=== PATIENT | female | born 1945 | race Caucasian/White ===

== ENCOUNTER 2019-02-04 16:10 | Inpatient (IN) | payer MEDICAID, MEDICARE ==
--- NOTE | 2019-02-04 16:42 | ED Physician Chart ---
ED Chief Complaint/HPI - Patient Information Date Seen:: 02/04/19 Time Seen:: 16:36 Chief Complaint:: hallucinations History of Present Illness:: this is a 73 yo female sent from the [facility] for evaluation and treatment because she has been yelling out for a week, out of control. she is chronically ill bilateral bka, diabetic and psychosis. Allergies:: Allergies Allergy/AdvReac Type Severity Reaction Status Date / Time No Known Allergies Allergy Verified 02/04/19 16:28 Vitals:: Vital Signs - 8 hr 02/04/19 16:28 Temp 97.4 F HR 55 RR 16 BP 171/68 O2 Sat % 99 Historian:: Medical Records Review:: Nurse's Note Reviewed ED Review of Systems - Review of Systems General/Constitutional: No fever, No chills, No weight loss, No weakness, No diaphoresis, No edema, No loss of appetite, Other (this patient is unable to give a review of system) Skin: No skin lesions, No rash, No bruising Head: No headache, No light-headedness Eyes: No loss of vision, No pain, No diplopia ENT: No earache, No nasal drainage, No sore throat, No tinnitus Neck: No neck pain, No swelling, No thyromegaly, No stiffness, No mass noted Cardio Vascular: No chest pain, No palpitations, No PND, No orthopnea, No edema Pulmonary: No SOB, No cough, No sputum, No wheezing GI: No nausea, No vomiting, No diarrhea, No pain, No melena, No hematochezia, No constipation, No hematemesis G/U: No dysuria, No frequency, No hematuria Musculoskeletal: No bone or joint pain, No back pain, No muscle pain Endocrine: No polyuria, No polydipsia Psychiatric: No prior psych history, No depression, No anxiety, No suicidal ideation Hematopoietic: No bruising, No lymphadenopathy Allergic/Immuno: No urticaria, No angioedema Neurological: No syncope, No focal symptoms, No weakness, No paresthesia, No headache, No seizure, No dizziness, No confusion, No vertigo ED Past Medical History - Past Medical History Obtainable: Yes Past Medical History: HTN, DM, Dementia Family History: None Social History: Non Smoker, No Alcohol, No Drug Use Surgical History: other (bilateral bka) Psychiatricy History: Schizophrenia, Dementia Family Medical History - Family Member Mother History Unknown: Yes ED Physical Exam - Physical Examination General/Constitutional: Awake, Well-developed, well-nourished, Alert, No distress, GCS 15, Non-toxic appearing, Ambulatory Other Gen/Cons comments:: confused intermittently and uncooperative Head: Atraumatic Eyes: Lids, conjuctiva normal, PERRL, EOMI Skin: Nl inspection, No rash, No skin lesions, No ecchymosis, Well hydrated, No lymphadenopathy ENMT: External ears, nose nl, Nasal exam nl, Lips, teeth, gums nl Neck: Nontender, Full ROM w/o pain, No JVD, No nuchal rigidity, No bruit, No mass, No stridor Respiratory: Nl effort/Exclusion, Clear to Auscultation, No Wheeze/Rhonchi/Rales Cardio Vascular: RRR, No murmur, gallop, rubs, NL S1 S2 GI: No tenderness/rebounding/guarding, No organomegaly, No hernia, Normal BS's, Nondistended, No mass/bruits, No McBurney tenderness : No CVA tenderness Extremities: No tenderness or effusion, Full ROM, normal strength in all extremities, No edema, Normal digits & nails Other Extremities comments:: bilateral bka Neuro/Psych: Alert/oriented, DTR's symmetric, Normal sensory exam, Normal motor strength, Judgement/insight normal, Mood normal, Normal gait, No focal deficits Misc: Normal back, No paraspinal tenderness ED Labs/Radiology/EKG Results - EKG Interpretations EKG Time:: 16:49 Rate & Rhythm: rate =57 sinus Gardner: right axis ED Assessment - Assessment General Assessment: psychosis ED Septic Shock - . Is Septic Shock (SBP<90, OR Lactate>4 mmol\L) present?: No - <6hrs of presentation: Vital Signs: Vital Signs - 8 hr / 16:28 Temp 97.4 F HR 55 RR 16 BP 171/68 O2 Sat % 99 ED Reassessment (Disposition) - Reassessment Reassessment Condition:: Unchanged - Diagnosis Diagnosis:: psychosis - Patient Disposition Discharge/Transfer:: Acute Care w/in this hosp Admitting Psych Physician:: Jorge Godinez
[2019-02-04 16:46] LABS: % BASOPHILS 1.2 % (0.0-2.0); % EOSINOPHILS 2.5 % (0.0-5.0); % LYMPHOCYTES 29.4 % (20.0-50.0); % MONOCYTES 8.4 % (2.0-10.0); % NEUTROPHILS 58.5 % (40.0-80.0); BASOPHILE ABSOLUTE 0.1 Th/cumm (0-0.2); EOSINOPHILE ABSOLUTE 0.2 Th/cmm (0.1-0.4); HEMATOCRIT 35.7 % (41.0-60); LYMPHOCYTE ABSOLUTE 2.6 Th/cmm (1.5-3.0); MEAN CORPUSCULAR HGB CONC 33.7 pg (28.0-36.0); MEAN PLATELET VOLUME 6.5 fl; MONOCYTE ABSOLUTE 0.7 Th/cmm (0.3-1.0); NEUTROPHILE ABSOLUTE 5.2 Th/cmm (1.8-8.0); PLATELET COUNT 469 Th/cmm (150-400); RED BLOOD COUNT 3.88 Mil/cmm (3.80-5.20); RED CELL DISTRIBUTION WIDTH 12.5 % (11.5-20.0); WHITE BLOOD COUNT 8.8 Th/cmm (4.8-10.8)
[2019-02-04 16:56] LABS: INR 0.93 (0.5-1.4); PROTHROMBIN TIME (TEST) 9.7 SECONDS (9.5-11.5)
[2019-02-04 17:00] LABS: ALB/GLOB RATIO 0.9 (1.0-1.8); ALBUMIN 3.4 gm/dL (3.7-5.3); ALKALINE PHOSPHATASE 101 U/L (34-104); ANION GAP 14.5 (7.0-16.0); BILIRUBIN,TOTAL 0.2 mg/dL (0.3-1.0); BUN - UREA NITROGEN 37 mg/dL (7-25); CALCIUM SERUM 9.5 mg/dL (8.6-10.3); CARBON DIOXIDE 18.9 mEq/L (21.0-31.0); CHLORIDE 103 mEq/L (98-107); CREATININE - SERUM 2.1 mg/dL (0.6-1.2); GLUCOSE 238 mg/dL (70-105); POTASSIUM SERUM 4.4 mEq/L (3.5-5.1); SGOT 12 U/L (13-39); SGPT/ALT 4 U/L (7-52); SODIUM SERUM 132 mEq/L (136-145); TOTAL PROTEIN,SERUM 7.2 gm/dL (6.0-8.3)
[2019-02-04 17:00] LABS: CHOLESTEROL 212 mg/dL (<200); HDL -HIGH DENSITY LIPOPROTEIN 43 mg/dL (23-92); TRIGLYCERIDES 350 mg/dL (<150)
[2019-02-04 17:23] LABS: URINE SOURCE CLEAN C
[2019-02-04 17:25] LABS: URINE BILIRUBIN NEGATIVE (NEGATIVE); URINE BLOOD SMALL (NEGATIVE); URINE GLUCOSE (UA) 250 mg/dL (NEGATIVE); URINE KETONE NEGATIVE (NEGATIVE); URINE LEUKOCYTE ESTERASE LARGE (NEGATIVE); URINE MICROSCOPIC INDICATED? YES; URINE NITRATE NEGATIVE (NEGATIVE); URINE PH 6.5 (4.6 - 8.0); URINE PROTEIN >=300 mg/dL (NEGATIVE); URINE UROBILINOGEN 0.2 E.U./dL (0.2 - 1.0)
[2019-02-04 17:27] LABS: URINE CLARITY HAZY (CLEAR); URINE COLOR YELLOW
[2019-02-04 17:32] LABS: URINE BACTERIA 3+ /hpf (NONE SEEN); URINE EPITHELIAL CELLS FEW /lpf (FEW)
[2019-02-04 17:57] VITALS: BP 171/68
[2019-02-04] MEDS ORDERED: Dextrose 50% 50 mL Abboject IVP PRN (19:25)
[2019-02-04] MEDS ORDERED: GLUCAGON HCl 1 MG KIT IM PRN (19:25)
[2019-02-04] MEDS: INSULIN LISPRO SLIDING SCALE 100 UNITS/ML UNIT SUBQ SCH (21:14)
[2019-02-05] MEDS: INSULIN LISPRO SLIDING SCALE 100 UNITS/ML UNIT SUBQ SCH ×4 (07:09→21:57)
[2019-02-05] MEDS ORDERED: Non-Formulary Item 1 EA (Acetaminophen [Pain Reliever] 650 MG) PO PRN (08:42)
[2019-02-05] MEDS ORDERED: Non-Formulary Item 1 EA (Clonidine Hcl [Clonidine Hcl Er] 0.1 MG) PO SCH (08:45)
[2019-02-05] MEDS ORDERED: FAMOTIDINE 20 MG PO SCH (09:00)
[2019-02-05] MEDS ORDERED: Non-Formulary Item 1 EA (Insulin Detemir 10 UNITS) SUBQ SCH (09:00)
[2019-02-05] MEDS: Vitamin D3 2,000 IU SGL PO SCH ×3 (09:53→21:19)
--- NOTE | 2019-02-05 09:53 | Diagnostic Imaging Report ---
CHEST X-RAY: AP view INDICATION: pain COMPARISON: None FINDINGS: There is elevation of right hemidiaphragm. Chronic lung changes are noted. There is no focal consolidation or pleural effusions. Mild cardiomegaly is noted. Degenerative changes of spine are noted. IMPRESSION: Chronic interstitial lung changes. No focal consolidation identified Mild cardiomegaly.
[2019-02-05] MEDS: Multivitamin w/ Minerals Tab PO SCH (09:55)
[2019-02-05] MEDS: Ferrous Sulfate 325 MG TAB PO SCH (09:56)
--- NOTE | 2019-02-05 09:59 | Diagnostic Imaging Report ---
Head CT without intravenous contrast Indication: pain Comparison: None Technique: Axial images were obtained from the vertex to the skull base without IV contrast. Coronal reconstructions were made. Total DLP: 736, CTDI42.7 FINDINGS: Images of the brain obtained without contrast demonstrate no evidence of an acute hemorrhage. Atrophy is noted. The melton-white matter differentiation is preserved. The ventricles and basal cisterns are patent. No mass effect or midline shift. Atherosclerosis is noted. No evidence of a skull fracture or focal soft tissue swelling. There is mucosal thickening in the paranasal sinuses. IMPRESSION: No evidence of acute intracranial hemorrhage. Atrophy. Atherosclerotic vascular disease.
[2019-02-05] MEDS ORDERED: INSULIN HUMAN REGULAR 100 UNITS/ML UNIT SUBQ SCH (11:30)
[2019-02-05] MEDS ORDERED: PIMAVANSERIN 34 MG PO SCH (11:30)
[2019-02-05] MEDS: NUPLAZID 34 MG PO SCH (17:03)
--- NOTE | 2019-02-05 21:21 | History & Physical ---
ADMIT DATE: 02/05/2019 PATIENT'S IDENTIFICATION: A 73-year-old female. CHIEF COMPLAINT: Sent to Emergency Room for evaluation of agitation. HISTORY OF PRESENT ILLNESS: A 73-year-old Martiniquais female who resides at [facility], has been followed by myself and my nurse practitioner, has a diagnosis of diabetes mellitus, hypertension, peripheral vascular disease, Parkinson disease, DJD, psychotic disorder, noted by nursing staff that the patient was extremely agitated and yelling. The patient was transferred to [facility] where the patient was evaluated and subsequently admitted to the hospital for further treatment. The patient speaks Anguillan only and the patient is agitated, unable to get meaningful history from the patient. PAST MEDICAL HISTORY: Remarkable for: 1. Diabetes. 2. Hypertension. 3. Peripheral vascular disease. 4. DJD. 5. Parkinson's disease. 6. Psychotic disorder. MEDICATIONS AT HOME: Depakote, lorazepam, Nuplazid, Tylenol, Norvasc, Sinemet, vitamin D3, clonidine, Plavix, Colace, famotidine, iron, gabapentin, Levemir insulin, metoprolol, multivitamin, and Requip. ALLERGIES: THE PATIENT IS NOT ALLERGIC TO MEDICATIONS. SOCIAL HISTORY: The patient resides in a long term. No history of smoking cigarette, alcohol, or drug use. FAMILY MEDICAL HISTORY: Remarkable for diabetes and hypertension. REVIEW OF SYSTEMS: Unable to get meaningful history from the patient. PHYSICAL EXAMINATION: GENERAL: The patient is alert, awake, lying in the bed, follows simple 1-step command VITAL SIGNS: Temperature 97.4, pulse is 64, respiratory rate 18, blood pressure 168/80. SKIN: Warm to touch. Adequate skin turgor. HEENT: Normocephalic, atraumatic. Extraocular muscles are intact. Tongue was pink and coated. Poor dentition noted. NECK: Supple, no JVD, no hepatojugular reflex, no lymphadenopathy, thyromegaly or carotid bruit. HEART: Both heart sounds are regular. No S3, no S4, no murmur. CHEST AND LUNGS: Equal in expansion. No expiratory wheezing. ABDOMEN: Soft. No guarding or rigidity. Bowel sounds are present. No palpable mass. EXTREMITIES: Remarkable for bilateral below knee amputation noted with intact stumps. No calf tenderness noted. AVAILABLE DIAGNOSTIC DATA: EKG normal sinus rhythm with rate of 57, right axis deviation noted. Sodium 132, potassium 4.4, chloride 103, CO2 of 18.9, BUN and creatinine is 37 and 2.1, glucose of 238, AST and ALT are 12 and 4. Troponin less than 0.15. Cholesterol of 212. Triglyceride of 315. TSH 1.74. Urine has moderate glucose, small blood, large amount of leuk esterase, 10-25 wbc, 3+ bacteria. CLINICAL IMPRESSION: 1. Urinary tract infection. 2. Chronic kidney disease stage 3. 3. Hyperlipidemia. 4. Diabetes mellitus. 5. Hypertension. 6. Peripheral vascular disease. 7. Bilateral below knee amputation. 8. Parkinson's disease. 9. Degenerative joint disease. 10. High risk for fall. 11. Psychotic disorder. PLAN: 1. Psychotic evaluation and management deferred to psychiatrist. 2. The patient will be placed on p.o. antibiotic. 3. The patient will be placed on p.o. statin. 4. Appropriate home medicine reconciliation. 5. Follow lab. 6. General nursing care. 7. Fall risk precautions. 8. Nutritional support. 9. Follow lab. 10. We will continue to follow this patient during the stay in the hospital. 11. Care plan reviewed. JOB# [id number]
--- NOTE | 2019-02-06 04:06 | Psychiatric Evaluation ---
DATE OF SERVICE: 02/05/2019 REASON FOR ADMISSION: The patient was admitted for episodes of yelling and screaming with visual hallucinations, seeing children that are not there causing the patient to yell and scream. HISTORY OF PRESENT ILLNESS: The patient is a 73-year-old female who is a resident of [facility] in [place]. The patient has been seen at the facility before. The patient has history of Parkinson's disease. She has been diagnosed with Parkinson's disease with psychosis. The patient has been put on Nuplazid and yet the patient continued to have psychotic symptoms and behavioral disturbance. On the day of admission, the staff called to request inpatient treatment because the patient continued to be yelling and responding to internal stimuli. Attempted to interview the patient while the patient was resting in bed. The patient had difficulty responding to physical and verbal stimuli. The patient was not able to stay awake long enough to answer any question. On few occasions, the patient attempted to lift her eyelid, but unable to open her eyelids completely. The patient quickly closed her eyelids again. Since the patient is unable to respond to any questions at this time, therefore unable to obtain any information, unable to get the patient to give her name, age or date. Staff reported that the patient slept well last night. The patient has not been awake at all this morning and therefore has not been given any medication. The patient has not eaten her breakfast. PAST PSYCHIATRIC HISTORY: As above, the patient has been diagnosed with Parkinson's disease with psychotic symptoms. PAST MEDICAL HISTORY: Gastroesophageal reflux disease, hypertension, Parkinson's disease, diabetes mellitus, anemia. PAST SURGICAL HISTORY: The patient has a history of below knee amputation bilaterally. ALLERGIES: No known allergy. MEDICATIONS: Currently the patient is on Colace, Pepcid, Plavix, metoprolol, Sinemet, vitamin D, ferrous sulfate, Levemir insulin, Norvasc, multiple vitamin, Requip, clonidine, gabapentin, divalproex sodium 250 mg at bedtime, Nuplazid 34 mg q. 5 p.m., insulin sliding scale, Tylenol, Ativan 0.5 mg q.6 hours p.r.n. FAMILY HISTORY: Unable to obtain any information at this time. PERSONAL HISTORY: Unable to obtain information at this time. MENTAL STATUS EXAMINATION: The patient appeared appropriate for stated age. The patient has difficulty responding to verbal and physical stimuli, therefore unable to obtain information, unable to assess the patient for immediate short term and long-term memory, unable to assess the patient for concentration, unable to assess the patient for any psychotic symptoms, however the patient has a history of Parkinson's with psychosis and on Nuplazid. DIAGNOSTIC IMPRESSION: AXIS I: 1. Parkinson's disease with psychosis. 2. Psychotic disorder and mood disorder, depressed due to medical condition. 3. Impulse control disorder, not otherwise specified. 4. Personality change due to medical condition. AXIS II: Deferred. AXIS III: Gastroesophageal reflux disease, hypertension, Parkinson's disease, diabetes mellitus, anemia. AXIS IV: Medical and mental illnesses. AXIS V: Current 10, past year unknown. PLAN: We will continue the patient on Nuplazid, Depakote and Ativan. We will add Abilify 5 mg p.o. q.a.m. for her psychosis since the Nuplazid alone is insufficient to control the patient's psychotic symptoms. We will assess the patient's response to the combination of Nuplazid and Abilify. DISCHARGE CRITERIA: Include improvement of her condition with sufficient control of her psychotic symptoms and her behavior. ESTIMATED LENGTH OF STAY: 7-10 days. [facility]# [id number] [facility]
[2019-02-06] MEDS: INSULIN LISPRO SLIDING SCALE 100 UNITS/ML UNIT SUBQ SCH ×4 (06:49→21:14)
[2019-02-06] MEDS: Vitamin D3 2,000 IU SGL PO SCH ×3 (09:22→20:34)
[2019-02-06] MEDS: Ferrous Sulfate 325 MG TAB PO SCH (09:22)
[2019-02-06] MEDS: Sulfamethoxazole/TMP 800/160mg Tab PO SCH ×2 (09:22→16:54)
[2019-02-06] MEDS: Multivitamin w/ Minerals Tab PO SCH (09:31)
[2019-02-06] MEDS: Insulin Glargine 100 units/ml 10ml Vial SUBQ SCH (10:03)
[2019-02-06] MEDS ORDERED: Magnesium Citrate 1.75 GM/300 mL Bottle PO ONE (11:39)
[2019-02-06] MEDS: Docusate Sodium/Senna Tab PO SCH (16:56)
[2019-02-06] MEDS: NUPLAZID 34 MG PO SCH (16:57)
--- NOTE | 2019-02-06 23:20 | Progress Notes ---
DATE: 02/06/2019 SUBJECTIVE: The patient was asleep in bed when approached. The patient responded to physical and verbal stimuli. The patient was seen with Greenlandic speaking staff. The patient was able to give her name. The patient was not able to say where she is or what type of facility this is. When asked why she is here, initially the patient stated she does not know. Then she said she is sick, but not able to say what kind of sickness she has. The patient indicated that she has been eating and sleeping okay. The patient denied any auditory, visual hallucination, or delusion. The patient denied any yelling or screaming. OBJECTIVE: The patient is more alert today than yesterday. The patient remained quite confused. The patient was able to answer questions directly. The staff reported that the patient's family visited last evening and they appeared to have longer conversation. The staff was unable to tell how the visit went. Whether the patient was confused or incoherent with the family or not. The staff reported that the patient slept well last night. The patient took her medications without any problem. The staff reported that the patient did not have any episodes of yelling or screaming or any episodes of visual hallucination. ASSESSMENT: Parkinson's disease with psychosis, psychotic disorder and mood disorder, depressed due to medical condition, impulse control disorder not otherwise specified, personality change due to medical condition. PLAN: We will continue the patient on Abilify and Nuplazid and monitor the patient's response to the medications. JOB# [id number] SANCHEZ
--- NOTE | 2019-02-06 23:39 | Progress Notes ---
DATE: 02/06/2019 DATE OF SERVICE: 02/06/2019 SUBJECTIVE: The patient seen and examined. The patient is lying in the bed. The patient complained of constipation. The patient denies any fever or chills. No nausea, no vomiting. PHYSICAL EXAMINATION: VITAL SIGNS: Temperature 97.2, pulse 64, respiratory rate 18, and blood pressure 131/66. HEENT: No facial asymmetry. NECK: Supple, no JVD. HEART: Regular. LUNGS: Clear to auscultation. ABDOMEN: Soft, no guarding, no rigidity. Bowel sounds present. No palpable mass. EXTREMITIES: Bilateral below-knee amputation noted. NEUROLOGIC: spasticity noted. CLINICAL IMPRESSION: 1. Constipation. 2. Urinary tract infection. 3. Parkinson's. 4. Diabetes. 5. High risk for fall. 6. Poor p.o. intake. 7. Degenerative joint disease. 8. Peripheral vascular disease. 9. Hypertension. 10. Hyperlipidemia. PLAN: 1. P.o. antibiotic. 2. Magnesium citrate. 3. Senokot. 4. Monitor blood sugar. 5. Home diabetes management. 6. Fall precaution. 7. Nutritional support. 8. General nursing care. 9. Care plan reviewed and discussed with staff. JOB# [id number]
[2019-02-07] MEDS: INSULIN LISPRO SLIDING SCALE 100 UNITS/ML UNIT SUBQ SCH ×4 (06:49→21:02)
[2019-02-07] MEDS: Sulfamethoxazole/TMP 800/160mg Tab PO SCH ×2 (08:19→16:28)
[2019-02-07] MEDS: Multivitamin w/ Minerals Tab PO SCH (08:20)
[2019-02-07] MEDS: Ferrous Sulfate 325 MG TAB PO SCH (08:20)
[2019-02-07] MEDS: Vitamin D3 2,000 IU SGL PO SCH ×3 (08:20→21:02)
[2019-02-07] MEDS: Docusate Sodium/Senna Tab PO SCH ×2 (08:21→18:06)
[2019-02-07] MEDS: Insulin Glargine 100 units/ml 10ml Vial SUBQ SCH (08:41)
--- NOTE | 2019-02-07 08:56 | Diagnostic Imaging Report ---
KUB abdominal film HISTORY: Pain, constipation The exam demonstrates nondilated stool-filled large bowel. Bowel gas pattern otherwise nonspecific. No free intraperitoneal air. Surgical clips are seen within the right upper quadrant consistent with a prior cholecystectomy. Degenerative changes noted throughout the spine and hip regions. IMPRESSION: 1. Nondilated stool-filled large bowel. Bowel gas pattern otherwise nonspecific. 2. Findings consistent with a prior cholecystectomy
--- NOTE | 2019-02-07 09:03 | Progress Notes ---
DATE: 02/07/2019 SUBJECTIVE: The patient is asleep in bed. The patient was difficult to arouse. The patient did not respond to shaking, calling her, asking her to open her eyes. Therefore, unable to obtain any information from the patient at this time. OBJECTIVE: The patient was difficult to arouse. The patient did not change her position in bed. Staff reported that the patient did not go to sleep until after midnight. The patient was given Restoril at 38 minutes past midnight. The staff reported that the patient had one episode of saying that her little children were in the room. Staff reported that the patient has not exhibited any yelling or screaming episode. The patient has been compliant with care and treatment. The patient has been eating and sleeping okay. ASSESSMENT: Parkinson's disease with psychosis, psychotic disorder, and mood disorder due to medical condition. PLAN: We will continue the patient on Nuplazid and Abilify and continue to monitor her psychotic symptoms and any episodes of yelling and screaming. JOB# [id number] SANCHEZ
[2019-02-07] MEDS: NUPLAZID 34 MG PO SCH (16:35)
[2019-02-08] MEDS: Vitamin D3 2,000 IU SGL PO SCH ×3 (09:18→21:25)
[2019-02-08] MEDS: Ferrous Sulfate 325 MG TAB PO SCH (09:18)
[2019-02-08] MEDS: Multivitamin w/ Minerals Tab PO SCH (09:18)
[2019-02-08] MEDS: Insulin Glargine 100 units/ml 10ml Vial SUBQ SCH (09:19)
[2019-02-08] MEDS: Docusate Sodium/Senna Tab PO SCH ×2 (09:19→16:49)
[2019-02-08] MEDS: Sulfamethoxazole/TMP 800/160mg Tab PO SCH ×2 (09:19→16:49)
[2019-02-08] MEDS: INSULIN LISPRO SLIDING SCALE 100 UNITS/ML UNIT SUBQ SCH ×2 (16:50→21:25)
[2019-02-08] MEDS: NUPLAZID 34 MG PO SCH (16:51)
--- NOTE | 2019-02-08 20:58 | Progress Notes ---
DATE: 02/08/2019 SUBJECTIVE: The patient was eating lunch in bed. The patient was cheerful and pleasant. The patient smiled when greeted. The patient reported that she has been eating and sleeping okay. The patient denied any auditory or visual hallucination. No delusion. The patient denied any yelling or screaming. OBJECTIVE: The patient was pleasant and smiled when greeted. The patient denied any problem. The patient reported that she is doing okay. The patient was confused. She does not know where she is. The staff reported that the patient has been compliant with care and treatment. The patient has been taking her medication without any problem. Staff reported that the patient has episodes of talking to herself. This typewriter tester observed the same thing when looking through the door before entering and greeting the patient. The staff reported that patient has been eating and sleeping okay and no behavioral problem. ASSESSMENT: Parkinson's disease with psychosis. Psychotic disorder and mood disorder, depressed due to medical condition, impulse control disorder, not otherwise specified. Personality change due to medical condition. PLAN: We will continue the patient on Nuplazid and Abilify. We will continue to monitor for any potential side effects from the medications. If the patient continues to be doing well, we will consider discharging the patient tomorrow. JOB# [id number] SANCHEZ
--- NOTE | 2019-02-08 22:19 | Progress Notes ---
DATE: 02/08/2019 DATE OF SERVICE: 02/08/2019 TIME: 01:49 p.m. IDENTIFICATION: This is a 73-year-old female. SUBJECTIVE: The patient seen and examined. The patient is lying in the bed. The patient has no new complaint. The patient is able to eat 75%-80% of her meals. The patient discussed with nursing staff. No new event. OBJECTIVE: VITAL SIGNS: Temperature 96.8, pulse is 55, respiratory rate is 18, blood pressure 144/67. HEENT: No facial asymmetry. NECK: Supple, no JVD. HEART: Regular. CHEST AND LUNGS: Equal in expansion, no expiratory wheezing. ABDOMEN: Soft. No guarding or rigidity. Bowel sounds present. No palpable mass. EXTREMITIES: Bilateral below-knee amputation noted. AVAILABLE DIAGNOSTIC DATA: None for my review. Glucoscan report reviewed. CLINICAL DIAGNOSES: 1. Hypertension. 2. Parkinson's. 3. Peripheral vascular disease. 4. Diabetes mellitus. 5. Psychotic disorder. 6. Gastroesophageal reflux disease. 7. Peripheral neuropathy. 8. Degenerative joint disease. 9. Debility. 10. Urinary tract infection. 11. High risk for fall. PLAN: 1. Diabetes management. 2. P.o. antibiotic. 3. Symptoms management. 4. Monitor blood pressure. 5. Monitor glucose. 6. General nursing care. 7. Chronic disease management. 8. Symptoms management. 9. Care plan reviewed and discussed with staff. JOB# [id number]
[2019-02-09] MEDS ORDERED: Magnesium Hydroxide (MOM) 30 mL UDC PO PRN (05:00)
[2019-02-09] MEDS: INSULIN LISPRO SLIDING SCALE 100 UNITS/ML UNIT SUBQ SCH ×3 (07:00→17:09)
[2019-02-09] MEDS: Docusate Sodium/Senna Tab PO SCH ×2 (09:45→16:51)
[2019-02-09] MEDS: Vitamin D3 2,000 IU SGL PO SCH ×2 (09:45→14:43)
[2019-02-09] MEDS: Multivitamin w/ Minerals Tab PO SCH (09:45)
[2019-02-09] MEDS: Sulfamethoxazole/TMP 800/160mg Tab PO SCH ×2 (09:46→16:51)
[2019-02-09] MEDS: Ferrous Sulfate 325 MG TAB PO SCH (09:46)
[2019-02-09] MEDS: Insulin Glargine 100 units/ml 10ml Vial SUBQ SCH (10:00)
--- NOTE | 2019-02-09 10:09 | Discharge Summary ---
RISSADATE OF DISCHARGE: 02/09/2019 REASON FOR ADMISSION: The patient was admitted for psychosis, seeing children in her room causing her to yell and scream. HISTORY OF PRESENT ILLNESS: The patient is a 73-year-old female from [facility] in [place]. The patient had been seen by this health underwriter at the facility before. On the day of admission, the staff at the facility called to report that the patient continued to have recurrent episodes of yelling and screaming associated with her visual hallucination. The staff requested that the patient be hospitalized so that her condition can be managed more quickly. Upon interview, the patient appeared to be a poor historian. The patient was quite sleepy and difficult to arouse. The patient had a difficult time giving her name. The patient would open her eyes briefly and then closed them again. Therefore, unable to obtain much information at that time. HOSPITAL COURSE: The patient has been sleepy for the most part. However, the staff reported that in the afternoon, the patient would be more awake. The patient at times would have problem staying awake for breakfast, but would eat breakfast later on. On one occasion, the staff reported that the patient said that there were children in the room. However, when asked the patient if she remembers seeing anything in her room, the patient denied. Since the patient has history of having visual hallucinations seeing children causing her to yell and scream talking to herself, Abilify was added to Nuplazid. The patient appeared to be responding okay to the medication. No report of any side effects. The day before this discharge, the patient's daughter was here, and she reported that the patient seems to be doing okay. The patient had a reasonably good conversation with her. The daughter reported that the patient does recognize her and know who she is. LABORATORY DATA ON DAY OF ADMISSION: CBC was done. The only abnormal findings were hematocrit of 35.7, which is slightly low; platelet count of 469,000, slightly elevated. PTT was 22.1, slightly low. Comprehensive metabolic panel: Sodium 132, carbon dioxide 18.9, both are slightly low. BUN 37, creatinine 2.1, both slightly elevated. Glucose of 238, which was slightly low. Her glucose monitoring fluctuate from a low of 106 to a high of 250. Total bilirubin was 0.2, which was low. AST 12, ALT 4, both low. Troponin 1 was less than 0.01, which was low. Albumin 3.4, which was low. Triglycerides 350, cholesterol 212, both are slightly elevated. Urinalysis show glucose of 250, blood, urine with small leukocyte esterase, large, rbc's 2-5, wbc's 10-25, bacteria 3+. RPR nonreactive. MEDICATIONS: The patient was continued on her medication from the facility. The patient was taking Nuplazid at the facility; however, it is not on formulary here. Therefore, the family had to bring the Nuplazid from the facility. Since the patient did not respond well enough to the Nuplazid alone, therefore, Abilify 5 mg p.o. q.a.m. was added. The patient of appeared to be responding well to the medication. The patient did not exhibit any recurrent yelling and screaming here, even though the patient has one reported episode of seeing children in her room. Since the patient has been doing okay without significant psychotic symptoms or behavior problem; therefore, the patient is discharged on 02/09/2019 back to [facility]. DISCHARGE MEDICATIONS: The patient will continue Tylenol, Norvasc, Abilify 5 mg daily, Sinemet, Plavix, Depakote ER 250 mg at bedtime, Colace, Pepcid, ferrous sulfate, Neurontin, glucagon, Lantus insulin, Humalog insulin sliding scale, Ativan 0.5 mg p.o. q.6 hours p.r.n., milk of magnesia, Lopressor, Nuplazid 34 mg daily, Requip, Senna Plus, Bactrim, vitamin D, Ambien 5 mg p.o. at bedtime p.r.n. FINAL DIAGNOSIS: AXIS 1: 1. Parkinson's disease with Psychosis 2. Psychotic disorder and Mood Disorder, Depressed, due to Medical condition. 3. Impulse Control Disorder NOS 4. Personality Change due to Medical Condition AXIS 2: Deferred AXIS 3: 1. Parkinson's Disease 2. GERD 3. Hypertension 4. Anemia AXIS 4: Medical and Mental Illnesses AXIS 5. Current: 25 Past Year: 20 JOB# [id number] [facility]
[2019-02-09] MEDS: NUPLAZID 34 MG PO SCH (16:49)
== END 2019-02-09 17:10 | DRG 885 ==
LOC: ER 16:10 → GERO2 17:00
PROVIDERS: ADMIT Psychiatry & Neurology Psychiatry; ATTEND Psychiatry & Neurology Psychiatry
DX: F29 Unspecified psychosis not due to a substance or known physiological condition (principal); N39.0 Urinary tract infection, site not specified; N18.3 Chronic kidney disease, stage 3 (moderate); G20 Parkinson's disease; F02.80 Dementia in other diseases classified elsewhere, unspecified severity, without behavioral disturbance, psychotic disturbance, mood disturbance, and anxiety; K21.9 Gastro-esophageal reflux disease without esophagitis; F39 Unspecified mood [affective] disorder; F63.9 Impulse disorder, unspecified; D64.9 Anemia, unspecified; E11.51 Type 2 diabetes mellitus with diabetic peripheral angiopathy without gangrene; M19.90 Unspecified osteoarthritis, unspecified site; I12.9 Hypertensive chronic kidney disease with stage 1 through stage 4 chronic kidney disease, or unspecified chronic kidney disease; E11.22 Type 2 diabetes mellitus with diabetic chronic kidney disease; K59.00 Constipation, unspecified; E11.42 Type 2 diabetes mellitus with diabetic polyneuropathy; Z89.512 Acquired absence of left leg below knee; Z91.81 History of falling; Z79.4 Long term (current) use of insulin; Z89.511 Acquired absence of right leg below knee
CPT/HCPCS: 36415-UA; 70450-TC; 71045-TC; 74000-TC; 80053-TC; 80061-TC; 81001-TC; 82948-90; 83036-90; 84443-TC; 84484-TC; 85025-TC; 85610-TC; 85730-TC; 86592-TC; 87086-90; 93005; J0696; J1815; Z7610